=== PATIENT | male | born 1995 | race Two or more races ===

== ENCOUNTER 2017-08-25 23:32 | Emergency (ER) | payer OTHER ==
[2017-08-26] MEDS: IBUPROFEN 200 MG TAB PO (02:11)
[2017-08-26 04:20] LABS: MONOTEST Negative (NEG)
== END 2017-08-26 04:45 | disposition home or self-care (01) ==
LOC: FTE 23:32
DX: J02.9 Acute pharyngitis, unspecified (principal)
CPT/HCPCS: 86308; 87070; 87880; 99283